=== PATIENT | male | born 1940 | race Caucasian/White ===

== ENCOUNTER 2018-02-14 09:43 | Inpatient (IN) | payer BC, MEDICAID, MEDICARE ==
[~2018-02-14] VITALS: Ht 182.9 cm; Wt 104.8 kg
[2018-02-14] MEDS ORDERED: LISI2.5T47 PO (09:52)
[2018-02-14] MEDS ORDERED: ATOR10TA69 PO (09:52)
[2018-02-14] MEDS ORDERED: METF-414 PO (09:52)
[2018-02-14] MEDS ORDERED: ASPI-986 PO (09:52)
[2018-02-14] MEDS ORDERED: METO-396 PO (09:52)
[2018-02-14] MEDS ORDERED: AMLO2.5T45 PO (09:52)
[2018-02-14] MEDS ORDERED: SODIUM CHLORIDE 0.9% 1,000 ML IV ONE (09:59)
[2018-02-14 11:30] LABS: CHLORIDE 103 mEq/L (98-107)
[2018-02-14 11:30] LABS: HEMATOCRIT. 44.7 % (42.0-52.0); HEMOGLOBIN. 14.8 g/dL (14.0-18.0); MEAN CORPUSCULAR HEMOGLOBIN 25.3 pg (28.0-32.0); MEAN CORPUSCULAR VOLUME 76.2 fL (80.0-94.0); MEAN PLATELET VOLUME 8.5 fl (7.4-10.4); PLATELET 284 x1000/uL (130-400); RED BLOOD CELL COUNT 5.86 mill/uL (4.7-6.1); RED CELL DISTRIBUTION WIDTH 17.6 % (11.6-14.6)
[2018-02-14 11:31] LABS: INR 1.1; PROTHROMBIN TIME 11.5 sec (9.1-11.1)
[2018-02-14 12:03] LABS: CLARITY URINE TURBID (CLEAR); COLOR URINE YELLOW (YELLOW); KETONES URINE NEGATIVE (NEGATIVE); LEUKOCYTE ESTERASE URINE 3+ (NEGATIVE); NITRITE URINE POSITIVE (NEGATIVE); OCCULT BLOOD URINE 3+ (NEGATIVE); PH URINE 5.5 (4.5-8.0); PROTEIN URINE 2+ (NEGATIVE); SPECIFIC GRAVITY URINE 1.015 (1.005-1.030)
[2018-02-14 12:11] LABS: PLATELET ESTIMATE NORMAL
[2018-02-14] MEDS ORDERED: CEFTRIAXONE 1 G PREMIX 50 ML IV ONE (12:15)
[2018-02-14] MEDS ORDERED: ACETAMINOPHEN 650MG/20.3ML UDC GT PRN (17:30)
[2018-02-14] MEDS ORDERED: CLONIDINE 0.1MG TABLET PO PRN (17:30)
[2018-02-14] MEDS ORDERED: GUAIFENESIN 200MG/10ML SUGAR FREE UDC PO PRN (17:30)
[2018-02-14] MEDS ORDERED: ACETAMINOPHEN 325MG TABLET PO PRN (17:30)
[2018-02-14] MEDS ORDERED: DIPHENHYDRAMINE 50MG/ML VIAL IV PRN (17:30)
[2018-02-14] MEDS ORDERED: ONDANSETRON HCL 4MG/2ML INJ IV PRN (17:30)
[2018-02-14] MEDS ORDERED: DOCUSATE SODIUM 100MG CAPSULE PO PRN (17:30)
[2018-02-14] MEDS ORDERED: ACETAMINOPHEN 650MG SUPP PR PRN (17:30)
[2018-02-14] MEDS ORDERED: IPRATROPIUM/ALBUTEROL 0.5-3(2.5)MG/3ML NEB INH PRN (17:30)
[2018-02-14] MEDS ORDERED: HYDROCODONE/ACETAMINOPHEN 5/325MG TABLET PO PRN (17:30)
[2018-02-14 18:10] VITALS: BP 126/62
[2018-02-14] MEDS ORDERED: NA PHOS,M-B/NA PHOS,DI-BA ENEMA 118ML PR PRN (18:22)
[2018-02-14 20:00] VITALS: BP 156/74
[2018-02-14 20:27] VITALS: BP 156/74
[2018-02-14] MEDS ORDERED: ENOXAPARIN 40MG/0.4ML SYR SUBCUT SCH (21:00)
[2018-02-14] MEDS: SODIUM CHLORIDE 0.45% 1,000 ML IV SCH (21:31)
[2018-02-14] MEDS: SODIUM CHLORIDE 0.9% INJ 3ML FLUSH IVF SCH (21:32)
[2018-02-14] MEDS ORDERED: DEXTROSE 50% WATER 50ML SYRINGE IV PRN ×2 (22:45)
[2018-02-15] VITALS: BP 129/56
[2018-02-15 01:31] LABS: CLARITY URINE TURBID (CLEAR); COLOR URINE YELLOW (YELLOW); KETONES URINE NEGATIVE (NEGATIVE); LEUKOCYTE ESTERASE URINE 3+ (NEGATIVE); NITRITE URINE NEGATIVE (NEGATIVE); OCCULT BLOOD URINE 3+ (NEGATIVE); PROTEIN URINE 3+ (NEGATIVE); SPECIFIC GRAVITY URINE 1.015 (1.005-1.030)
[2018-02-15 02:31] LABS: *AMPHETAMINES SCREEN URINE NEGATIVE (NEGATIVE); *BARBITURATES SCREEN URINE NEGATIVE (NEGATIVE); *BENZODIAZEPINES SCREEN URINE NEGATIVE (NEGATIVE); *COCAINE SCREEN URINE NEGATIVE (NEGATIVE)
[2018-02-15 02:32] LABS: METHADONE URINE SCREEN NEGATIVE (NEGATIVE); OPIATES URINE SCREEN NEGATIVE (NEGATIVE); PHENCYCLIDINE URINE SCREEN NEGATIVE (NEGATIVE)
[2018-02-15 02:33] LABS: CANNABINOID URINE SCREEN NEGATIVE (NEGATIVE)
[2018-02-15 04:00] VITALS: BP 157/78
[2018-02-15] MEDS: BLOOD SUGAR DIAGNOSTIC STRIP TEST SCH ×4 (06:21→20:40)
[2018-02-15] MEDS: DILTIAZEM HCL 30MG TABLET PO SCH ×3 (06:48→21:05)
[2018-02-15] MEDS: SODIUM CHLORIDE 0.9% INJ 3ML FLUSH IVF SCH ×3 (06:50→21:06)
[2018-02-15] MEDS ORDERED: BLOOD SUGAR DIAGNOSTIC STRIP TEST SCH (07:20)
[2018-02-15] MEDS ORDERED: INSULIN LISPRO 100 UNITS/ML SUBCUT SCH (07:50)
[2018-02-15 08:14] VITALS: BP 145/64
[2018-02-15] MEDS: INSULIN LISPRO 100 UNITS/ML SUBCUT SCH ×4 (09:12→21:04)
[2018-02-15] MEDS: SODIUM CHLORIDE 0.45% 1,000 ML IV SCH (12:26)
[2018-02-15] MEDS: CEFTRIAXONE 1 G PREMIX 50 ML IV SCH (12:26)
[2018-02-15 12:27] VITALS: BP 150/72
[2018-02-15 12:47] LABS: HEMATOCRIT. 43.2 % (42.0-52.0); HEMOGLOBIN. 14.4 g/dL (14.0-18.0); MEAN CORPUSCULAR HEMOGLOBIN 25.2 pg (28.0-32.0); MEAN CORPUSCULAR VOLUME 75.6 fL (80.0-94.0); MEAN PLATELET VOLUME 8.3 fl (7.4-10.4); PLATELET 250 x1000/uL (130-400); RED BLOOD CELL COUNT 5.71 mill/uL (4.7-6.1); RED CELL DISTRIBUTION WIDTH 17.4 % (11.6-14.6)
[2018-02-15 13:16] LABS: PLATELET ESTIMATE NORMAL
[2018-02-15 13:28] LABS: CHLORIDE 100 mEq/L (98-107)
[2018-02-15 13:29] LABS: HEPATITIS B SURFACE ANTIGEN NEGATIVE
[2018-02-15 13:41] LABS: PHOSPHORUS 2.7 mg/dL (2.5-4.9)
[2018-02-15 13:42] LABS: LDL CHOLESTEROL 75 mg/dL (5-100)
[2018-02-15 13:44] LABS: HDL CHOLESTEROL 34 mg/dL (40-59)
[2018-02-15 13:54] LABS: CREATINE KINASE 2413 IU/L (39-308)
[2018-02-15 15:40] VITALS: BP 164/65
[2018-02-15] MEDS ORDERED: DIPHENOXYLATE/ATROPINE 2.5/0.025MG TABLET PO NR (16:00)
[2018-02-15] MEDS ORDERED: OMEP20CA10 MT (16:27)
[2018-02-15] MEDS ORDERED: METF500T60 MT (16:27)
[2018-02-15] MEDS ORDERED: EDOX30TA MT (16:27)
[2018-02-15] MEDS ORDERED: TAMS0.4C31 MT (16:27)
[2018-02-15] MEDS ORDERED: LISI10TA5 MT (16:27)
[2018-02-15] MEDS ORDERED: INSU100I28 SQ (16:27)
[2018-02-15] MEDS ORDERED: METO-385 MT (16:27)
[2018-02-15] MEDS ORDERED: ATOR40TA70 MT (16:27)
[2018-02-15 19:52] LABS: CHLORIDE 101 mEq/L (98-107)
[2018-02-15 20:42] VITALS: BP 122/61
[2018-02-15] MEDS: METOPROLOL TARTRATE 25MG TABLET PO SCH (21:05)
[2018-02-15] MEDS: ENOXAPARIN 30MG/0.3ML SYR SUBCUT SCH (21:06)
[2018-02-16] VITALS: BP 127/65
[2018-02-16 04:00] VITALS: BP 144/74
[2018-02-16 05:54] LABS: HEMATOCRIT. 39.4 % (42.0-52.0); HEMOGLOBIN. 13.1 g/dL (14.0-18.0); MEAN CORPUSCULAR HEMOGLOBIN 25.1 pg (28.0-32.0); MEAN CORPUSCULAR VOLUME 75.4 fL (80.0-94.0); MEAN PLATELET VOLUME 8.7 fl (7.4-10.4); PLATELET 216 x1000/uL (130-400); RED BLOOD CELL COUNT 5.23 mill/uL (4.7-6.1); RED CELL DISTRIBUTION WIDTH 17.3 % (11.6-14.6)
[2018-02-16] MEDS: BLOOD SUGAR DIAGNOSTIC STRIP TEST SCH ×4 (06:01→21:03)
[2018-02-16] MEDS: SODIUM CHLORIDE 0.45% 1,000 ML IV SCH ×2 (06:24→20:48)
[2018-02-16] MEDS: SODIUM CHLORIDE 0.9% INJ 3ML FLUSH IVF SCH ×3 (06:24→21:03)
[2018-02-16] MEDS: DILTIAZEM HCL 30MG TABLET PO SCH ×3 (06:25→21:03)
[2018-02-16 08:00] VITALS: BP 139/70
[2018-02-16 08:17] LABS: CHLORIDE 102 mEq/L (98-107)
[2018-02-16 08:26] LABS: PHOSPHORUS 2.9 mg/dL (2.5-4.9)
[2018-02-16 08:44] LABS: CREATINE KINASE 1024 IU/L (39-308)
[2018-02-16] MEDS: ENOXAPARIN 30MG/0.3ML SYR SUBCUT SCH ×2 (08:50→21:02)
[2018-02-16] MEDS: INSULIN LISPRO 100 UNITS/ML SUBCUT SCH ×4 (08:53→21:04)
[2018-02-16] MEDS: METOPROLOL TARTRATE 25MG TABLET PO SCH ×2 (09:00→21:03)
[2018-02-16] MEDS ORDERED: LINE600T32 MT (11:21)
[2018-02-16] MEDS ORDERED: LINE600T32 PO (11:21)
[2018-02-16 12:00] VITALS: BP 118/68
[2018-02-16] MEDS: CEFTRIAXONE 1 G PREMIX 50 ML IV SCH (13:00)
[2018-02-16 13:06] LABS: IMMUNOGLOBULIN A 246 mg/dL (61-437); IMMUNOGLOBULIN G 918 mg/dL (700-1600); IMMUNOGLOBULIN M 92 mg/dL (15-143)
[2018-02-16 14:18] LABS: *CREATININE RANDOM URINE 104.6 mg/dL (Not Estab.); MICROALBUMIN RANDOM URINE 1410.4 ug/mL (Not Estab.)
[2018-02-16 16:00] VITALS: BP 126/69
[2018-02-16 18:10] LABS: PLATELET ESTIMATE NORMAL
[2018-02-16 20:00] VITALS: BP 143/72
[2018-02-17 04:00] VITALS: BP 145/79
[2018-02-17 06:08] LABS: BASOPHILS % 0.6 % (0.0-2.0); EOSINOPHILS % 1.8 % (0.0-5.0); HEMATOCRIT. 40.2 % (42.0-52.0); HEMOGLOBIN. 13.8 g/dL (14.0-18.0); LYMPHOCYTES % 9.8 % (20.0-50.0); MEAN CORPUSCULAR HEMOGLOBIN 25.9 pg (28.0-32.0); MEAN CORPUSCULAR VOLUME 75.6 fL (80.0-94.0); MEAN PLATELET VOLUME 8.7 fl (7.4-10.4); MONOCYTES % 11.6 % (2.0-8.0); NEUTROPHILS % 76.2 % (40.0-76.0); PLATELET 168 x1000/uL (130-400); RED BLOOD CELL COUNT 5.31 mill/uL (4.7-6.1); RED CELL DISTRIBUTION WIDTH 17.4 % (11.6-14.6)
[2018-02-17] MEDS: DILTIAZEM HCL 30MG TABLET PO SCH ×2 (06:28→15:28)
[2018-02-17] MEDS: BLOOD SUGAR DIAGNOSTIC STRIP TEST SCH ×3 (06:28→17:20)
[2018-02-17] MEDS: SODIUM CHLORIDE 0.9% INJ 3ML FLUSH IVF SCH ×2 (06:28→14:00)
[2018-02-17 06:32] LABS: PHOSPHORUS 2.9 mg/dL (2.5-4.9)
[2018-02-17 08:00] VITALS: BP 142/75
[2018-02-17 08:22] LABS: A/G RATIO 0.6 (0.7-1.7); ALBUMIN 2.2 g/dL (2.9-4.4); ALPHA-1-GLOBULIN 0.4 g/dL (0.0-0.4); BETA GLOBULIN 0.9 g/dL (0.7-1.3); GAMMA GLOBULINS 1.4 g/dL (0.4-1.8); GLOBULIN TOTAL 3.6 g/dL (2.2-3.9); M-SPIKE Not Observed g/dL (Not Observed); TOTAL PROTEIN SERUM 5.8 g/dL (6.0-8.5)
[2018-02-17] MEDS: METOPROLOL TARTRATE 25MG TABLET PO SCH (09:31)
[2018-02-17] MEDS: ENOXAPARIN 30MG/0.3ML SYR SUBCUT SCH (09:32)
[2018-02-17] MEDS: INSULIN LISPRO 100 UNITS/ML SUBCUT SCH ×3 (09:38→17:50)
[2018-02-17 12:20] VITALS: BP 133/73
[2018-02-17 17:42] VITALS: BP 144/78
[2018-02-17] MEDS ORDERED: CEPHALEXIN 250MG CAPSULE PO SCH (18:00)
== END 2018-02-17 18:00 | DRG 871 ==
LOC: ER 09:43 → 6WST 13:29 → EDBEDREQTM 13:32 → EDBEDREQSVC 13:32 → EDBEDREQ 13:33 → ENRESERV 15:51
PROVIDERS: ADMIT Family Medicine; ATTEND Family Medicine
DX: A41.9 Sepsis, unspecified organism (principal); N17.1 Acute kidney failure with acute cortical necrosis; N39.0 Urinary tract infection, site not specified; E44.1 Mild protein-calorie malnutrition; I12.9 Hypertensive chronic kidney disease with stage 1 through stage 4 chronic kidney disease, or unspecified chronic kidney disease; E11.22 Type 2 diabetes mellitus with diabetic chronic kidney disease; E78.5 Hyperlipidemia, unspecified; N40.1 Benign prostatic hyperplasia with lower urinary tract symptoms; S51.812A Laceration without foreign body of left forearm, initial encounter; X58.XXXA Exposure to other specified factors, initial encounter; B95.2 Enterococcus as the cause of diseases classified elsewhere; I48.91 Unspecified atrial fibrillation; N18.3 Chronic kidney disease, stage 3 (moderate); Z85.528 Personal history of other malignant neoplasm of kidney; Z68.31 Body mass index [BMI] 31.0-31.9, adult; Z88.0 Allergy status to penicillin; Z90.5 Acquired absence of kidney; Z79.84 Long term (current) use of oral hypoglycemic drugs; Z79.82 Long term (current) use of aspirin; Z79.899 Other long term (current) drug therapy; Y93.89 Activity, other specified; Y92.89 Other specified places as the place of occurrence of the external cause; Y99.8 Other external cause status
CPT/HCPCS: 36415; 71045; 76770; 80048; 80061; 80305; 82043; 82550; 82570; 82784; 82962; 83605; 83735; 84100; 84134; 84145; 84153; 84155; 84165; 84300; 84484; 86334; 86803; 87015; 87045; 87077; 87186; 87340; 87427; 87449; 87493; 93005; 93306; 93970; 96365; 96366; 99285; C1893; J0696; J1650; J1815; J2405; J7030; A4315; G0103

== ENCOUNTER 2018-02-27 12:55 | Emergency (ER) | payer BC ==
[~2018-02-27] VITALS: Ht 180.3 cm; Wt 95.0 kg
[~2018-02-27 12:55] MED LIST: ASPI-986 PO; ATOR10TA69 PO; EDOX30TA MT; INSU100I28 SQ; LINE600T32 MT; LINE600T32 PO; METO-385 MT; OMEP20CA10 MT; TAMS0.4C31 MT
[2018-02-27 18:23] VITALS: BP 125/70
== END 2018-02-27 18:25 | disposition home or self-care (01) ==
LOC: ER 12:55
DX: R33.9 Retention of urine, unspecified (principal); E11.9 Type 2 diabetes mellitus without complications; E78.00 Pure hypercholesterolemia, unspecified; I10 Essential (primary) hypertension; Z88.0 Allergy status to penicillin; Z79.899 Other long term (current) drug therapy
CPT/HCPCS: 51702; 99284

== ENCOUNTER 2018-03-01 03:50 | Emergency (ER) | payer BC ==
[~2018-03-01] VITALS: Ht 182.9 cm; Wt 120.0 kg
[2018-03-01] MEDS ORDERED: ONDANSETRON HCL 4MG/2ML INJ IV STA (06:02)
[2018-03-01] MEDS ORDERED: MORPHINE SULFATE 10 MG/ML CPJ IV ONE (06:15)
[2018-03-01 06:45] LABS: CLARITY URINE CLOUDY (CLEAR); COLOR URINE YELLOW (YELLOW); KETONES URINE NEGATIVE (NEGATIVE); LEUKOCYTE ESTERASE URINE TRACE (NEGATIVE); NITRITE URINE NEGATIVE (NEGATIVE); OCCULT BLOOD URINE 3+ (NEGATIVE); PROTEIN URINE 1+ (NEGATIVE); SPECIFIC GRAVITY URINE 1.008 (1.005-1.030); UROBILINOGEN URINE 0.2 E.U./dL (0.2-1.0)
[2018-03-01 07:29] VITALS: BP 119/47
[2018-03-01] MEDS ORDERED: LEVOFLOXACIN 750MG PREMIX 150 ML IV ONE (07:45)
== END 2018-03-01 08:22 | disposition home or self-care (01) ==
LOC: ER 03:50
DX: T83.091A Other mechanical complication of indwelling urethral catheter, initial encounter (principal); N39.0 Urinary tract infection, site not specified; R33.9 Retention of urine, unspecified; Z88.0 Allergy status to penicillin; Z79.899 Other long term (current) drug therapy
CPT/HCPCS: 51702; 87077; 87186; 99284; A4315